=== PATIENT | female | born 1975 | race Caucasian/White ===

== ENCOUNTER 2022-09-23 12:45 | Outpatient (CLI) | payer MEDICARE ==
--- NOTE | 2022-09-23 16:33 | XRAY Report ---
PROCEDURE: Elbow 2 View RT INDICATIONS: RIGHT ELBOW INJURY. TECHNIQUE: 2 views of the elbow were acquired. COMPARISON: None. FINDINGS: Bones: No fractures or dislocations. No suspicious bony lesions. Soft tissues: No effusion. No suspicious soft tissue calcifications or masses. IMPRESSION: No acute fracture. No osseous lesion. If symptoms and/or clinical suspicion for pathology continue, f urther assessment with repeat plain films, or advanced imaging (e.g., CT, MRI, or bone scan) is recom mended for further assessment. Reviewed by: Concepcion Girard MD on 09/23/2022 4:32 PM PDT Approved by: Concepcion Girard MD on 09/23/2022 4:32 PM PDT Station ID: [id number]
== END 2022-09-23 13:00 | disposition home or self-care (01) ==
LOC: DI.N 12:45
PROVIDERS: ATTEND Specialist
DX: S59.801D Other specified injuries of right elbow, subsequent encounter (principal)

== ENCOUNTER 2022-12-14 08:00 | Outpatient (CLI) | payer MEDICARE | END 2022-12-14 23:59 | disposition home or self-care (01) | LOC: LAB.WC 08:00 | PROVIDERS: ATTEND Obstetrics & Gynecology | DX: Z32.02 Encounter for pregnancy test, result negative (principal) ==

== ENCOUNTER 2023-01-31 14:51 | Outpatient (CLI) | payer MEDICARE, OTHER ==
--- NOTE | 2023-01-31 20:54 | SLEEP CARE CONSULTATION ---
Information from patient questionnaire entered by Binh Gunter. I have reviewed and concur with the information entered by Binh Gunter. This document represents the service I personally performed and the decisions made by me, Ned Kennedy MD, [facility]. History of Present Illness Service Date and Time: 01/31/2023 1451 Reason for Visit: New patient Chief Complaint: reports: Insomnia, Unrefreshed sleep Date of Onset: LIFE LONG Usual bedtime: 10PM Time it takes to fall asleep: OVER AN HR Snores at night: Yes Observed to quit breathing while asleep: No Sleeps alone due to snoring: No Number of times waking at night: 4 Reasons for waking at night: reports: Other (UNKNOWN) Toss, Turn, or Twitch while sleeping: Yes Recalls having dreams: No Feels refreshed in the morning: No Morning headache: Yes Sleepy or fatigued during the day: No Ever fallen asleep while driving: No Takes day naps: No Dreams during day naps: No Prior sleep studies: No Additional HPI information: I have the pleasure of seeing Ms. Anthony today regarding the possibility of her having obstructive sleep apnea. As you know, she is a 47-year-old lady who complains of life-long insomnia. She has been treated will all kinds of sleep aid including zolpidem, Lunesta, trazodone, etc. Presently, she takes lorazepam. The patient tells me that she normally goes to bed around 10 pm but does not turn off the light until midnight. It takes her approximately 60 minutes to fall asleep. She has been told that she snores loudly and irregularly at night. She has never been observed to stop breathing in her sleep. Her sleeps in the same bed. He has obstructive sleep apnea- hypopnea but does not like to use his CPAP. She can recall waking up on the average of 4 times during the night. Most of the time she wakes up because of having to use the bathroom. She has awakened occasionally because of her own snoring, choking, and having to gasp for air. There is not a lot of tossing and turning in her sleep. She reports having somniloquy (sleep talking) and somnambulism (sleep walking). Generally, there is no recollection of dreams. In the morning she usually gets up out of the bed around 9 a.m. not feeling refreshed nor rested. She usually has a morning headache that goes away with drinking water. During the day she complains of feeling fatigued but not sleepy. Her score on [place] Sleepiness Scale is 1 out of 24. She never has fallen asleep while driving nor has had any accident due to sleepiness. She usually does not take naps during the day. She reports having impaired concent ration during the day. 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 Patient is and lives in . Alcohol use: No Caffeine use: Yes Caffeine amount and frequency: 4-5 DAILY Family History Family history of sleep disordered breathing: Yes Family Hx Sleep Apnea: Mother: Snoring, Father: Snoring, Sibling: Snoring Allergies and Home Medications Known drug allergies: Yes ( LISTED) Drug allergies reviewed: Yes Home medication list reviewed: Yes Review of Systems Cardiovascular: reports: high blood pressure Respiratory: denies: shortness of breath, wheeze, sputum production, chronic co ugh, other Gastrointestinal: reports: heartburn Urinary: denies: incontinence, frequency, urgency, impotence, other Neurological: reports: headaches Psychiatric: reports: Attention Deficit Hyperactivity, anxiety, depression, mood disorder, claustrophobia Ear/Nose/Throat: reports: tonsillectomy, wisdom teeth removed Endocrine: reports: sluggishness, increased appetite Musculoskeletal: reports: back pain, muscle pain or cramping Immunologic: denies: sneezing, rash, itching, allergies to food or environment, other Physical Exam Vital signs obtained and entered by: BINH Engel MA Blood Pressure: 126/78 (LEFT ARM) Cuff size: regular Heart Rate: 82 O2 Saturation: 97 Height: 5 ft 9 in Weight: 198 lb 3.2 oz Body Mass Index: 29.2 BMI Classification: Overweight Neck circumference: 14.5 Mood/affect: Normal HEENT: No craniofacial malformation Nostrils: patent to airflow Turbinates: normal Septum: midline Mouth and throat: narrow oropharynx Soft palate: long Hard palate: normal Uvula: normal Uvula visualization: 50% Mallampati Class II Tongue: normal in size Tonsils: absent bilaterally Chin and jaw: normal size and position Neck: normal w/o lymphadenopathy or thyromegaly Heart: regular rate and rhythm Lungs: clear bilaterally Extremities: no edema or clubbing Neurologic: intact Impression and Plan IMPRESSION: 1. Obstructive Sleep Apnea-Hypopnea Syndrome, as evident by history of snoring, frequent awakenings during the night, unrefreshed sleep, morning headache, and cognitive impairment. Narrow oropharynx and obesity are common predisposing factors for obstructive sleep apnea-hypopnea syndrome. Untreated obstructive sleep apnea can also cause hypertension. I recommend proceeding to polysomnography to confirm the diagnosis and to assess severity. If she has significant sleep disordered breathing, a manual CPAP titration study will also be performed to find the optimal treatment pressure. I informed the patient of what the sleep studies involve and after some discussion, she agreed to proceed. 2. Insomnia due to excessive time spent in bed and underlying psychiatric disorders. The patients sleep-wake pattern reflects that of untreated bipolar disorder. However, the patient also spends 11 hours in bed each nightfrom 10 pm to 9 am. She appears to be obsessed with sleep. I tried to diffuse if buy pointing out to her that life is already short, and she should not spend half of it in the bedroom. The lack of excessive daytime sleepiness ([place] Sleepiness Scale score is only 1) confirms that she has been getting adequate sleep all along. Therefore, her goal should be to not lie awake in bed, instead of sleeping more which is not possible. I advised her to not go to bed until 1 am if she continues to get out of bed at 9 am. Plan: 1. Schedule polysomnography and return in 1 to 2 weeks after the study to discuss the results. 2. Maintain a regular wake up time and spend no more than 8 hours in bed at night. Avoid naps. Follow up with Sleep Care in: 1-2 months Visit Type: In Office Time Spent with Patient (minutes): 15 Provider Statement: I spent 100% of the Face to Face Visit with the patient with greater than 50% spent counseling the patient and coordination of care.
[2023-01-31 20:55] VITALS: BP 126/78; O2SAT 97
== END 2023-01-31 14:52 | disposition home or self-care (01) ==
LOC: SC 14:51
PROVIDERS: ATTEND Internal Medicine Pulmonary Disease
DX: R53.83 Other fatigue (principal); G47.8 Other sleep disorders; R51.9 Headache, unspecified; R41.89 Other symptoms and signs involving cognitive functions and awareness; R06.83 Snoring; F32.A Depression, unspecified; E66.3 Overweight; Z68.29 Body mass index [BMI] 29.0-29.9, adult
CPT/HCPCS: 99202; G0463; 99212

== ENCOUNTER 2023-04-02 21:56 | Outpatient (CLI) | payer MEDICARE, OTHER | END 2023-04-02 21:57 | disposition critical access hospital (66) | LOC: EMS 21:56 | DX: R56.9 Unspecified convulsions (principal); Z73.3 Stress, not elsewhere classified; Z72.820 Sleep deprivation | CPT/HCPCS: A0425; A0429 ==

== ENCOUNTER 2023-04-02 22:15 | Emergency (ER) | payer MEDICARE, OTHER ==
--- NOTE | 2023-04-02 22:57 | ED Physician Documentation ---
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 History obtained with patient and spouse at bedside. Spouse states that the patient had complained of a headache and was laying on his lap. He states that all of a sudden she let out a guttural sound and sat straight up. Shortly afterwards she went limp and then began convulsing and frothing at the mouth. He states this lasted approximately 1 minute before it spontaneously subsided. Afterwards the patient was confused. Patient states that she does not remember anything until medics arrived and she was being loaded onto the ambulance. Patient states that she has been under a lot of anxiety lately and recently was at [facility] voluntarily for anxiety and suicidal ideations. She reports a history of "stress seizures" many years ago, but has not had one in multiple years. She has recently restarted taking buspirone. She used to be on this medication several years ago but stopped, she started taking it again approximately 3 weeks ago. She denies any drug or illicit substance use, but does use a marijuana vape pen. Spouse at bedside confirms patient is back to neurologic baseline. Review of Systems Constitutional: denies: Fever, Chills Cardiac: denies: Chest pain / pressure, Palpitations, Calf pain Respiratory: denies: Dyspnea, Cough, Wheezing Skin: denies: Rash, Lesions, Abrasion (s) Musculoskeletal: denies: Neck pain, Back pain, Extremity pain Neurologic: reports: Seizure. denies: Generalized weakness, Focal weakness, Numbness Psychiatric: reports: Anxiety PD PAST MEDICAL HISTORY - Past Medical History Past Medical History: Yes Cardiovascular: None Respiratory: None Neuro: Other Endocrine/Autoimmune: None GI: None SPIRAL RUNNER: None : None HEENT: None Psych: Depression, Anxiety, Bipolar disorder, Panic attacks, Post traumatic stress disorder Musculoskeletal: None Derm: None Other Past Medical History: prior stress induced seizure - Past Surgical History Past Surgical History: Yes HEENT: Tonsil/Adenoidectomy - Allergies Allergies/Adverse Reactions: Allergies Allergy/AdvReac Type Severity Reaction Status Date / Time codeine Allergy Nausea Verified 04/02/23 22:37 erythromycin base Allergy Rash Verified 04/02/23 22:37 - Social History Does the pt smoke?: No Smoking Status: Never smoker Does the pt drink ETOH?: Yes Does the pt have substance abuse?: No - Immunizations Immunizations are current?: Yes - POLST Patient has POLST: No PD ED PE NORMAL - Vitals Vital signs reviewed: Yes - General General: Alert and oriented X 3, No acute distress, Well developed/nourished, Other (appears older than stated age) - Neck Neck: Supple, no meningeal sign - Cardiac Cardiac: RRR, Strong equal pulses - Respiratory Respiratory: No respiratory distress, Clear bilaterally - Abdomen Abdomen: Soft, Non tender, Non distended - Back Back: No CVA TTP, No spinal TTP - Derm Derm: Normal color, Warm and dry, No rash - Extremities Extremities: No deformity, No tenderness to palpate, Normal ROM s pain - Neuro Neuro: Alert and oriented X 3, customer development manager 2-12 intact, No motor deficit, Normal speech - Psych Psych: Normal mood, Normal affect Results - Vitals Vitals: Vital Signs - 24 hr 04/02/23 04/02/23 04/03/23 22:32 23:09 01:05 Temperature 37.1 C 36.7 C Heart Rate 104 H 80 72 Respiratory 18 18 16 Rate Blood Pressure 155/94 H 130/89 H 141/76 H O2 Saturation 98 98 97 04/03/23 01:27 Temperature Heart Rate 72 Respiratory 17 Rate Blood Pressure 145/76 H O2 Saturation 97 Oxygen O2 Source Room air - EKG (time done) 225 EKG releavant findings:: EKG personally interpreted by author of this note. Relevant findings are: Rate: Rate (enter#) (78) Rhythm: NSR [place]: Normal Intervals: Normal [place] QRS: Normal Ischemia: Normal ST segments - Labs Labs: Laboratory Tests 04/02/23 04/02/23 04/02/23 22:49 22:54 22:54 WBC 9.0 RBC 3.94 L Hgb 12.2 Hct 36.0 L MCV 91.4 MCH 31.0 MCHC 33.9 RDW 12.5 Plt Count 277 MPV 10.8 Neut # (Auto) 6.2 Lymph # (Auto) 2.1 [place] # (Auto) 0.6 Eos # (Auto) 0.1 Baso # (Auto) 0.0 Absolute Nucleated RBC 0.00 Nucleated RBC % 0.0 PT 12.2 INR 1.1 Sodium Potassium Chloride Carbon Dioxide Anion Gap BUN Creatinine Estimated GFR (MDRD) Glucose Lactic Acid 2.4 H Calcium Phosphorus Magnesium Total Bilirubin AST ALT Alkaline Phosphatase Total Creatine Kinase Total Protein Albumin Globulin Albumin/Globulin Ratio Lipase Urine Color Urine Clarity Urine pH Ur Specific [place] Urine Protein Urine Glucose (UA) Urine Ketones Urine Occult Blood Urine Nitrite Urine Bilirubin Urine Urobilinogen Ur Leukocyte Esterase Urine RBC Urine WBC Ur Squamous Epith Cells Urine Bacteria Ur Microscopic Review Urine Culture Comments Salicylates Urine Opiates Screen Ur Buprenorphine Scrn Ur Oxycodone Screen Urine Methadone Screen Acetaminophen Ur Barbiturates Screen Ur Tricyclics Screen Ur Phencyclidine Scrn Ur Amphetamine Screen U Methamphetamines Scrn U Benzodiazepines Scrn Urine Cocaine Screen U Cannabinoids Screen Ur Drug Screen Comment Ethyl Alcohol 04/02/23 04/02/23 23:27 23:36 WBC RBC Hgb Hct MCV MCH MCHC RDW Plt Count MPV Neut # (Auto) Lymph # (Auto) [place] # (Auto) Eos # (Auto) Baso # (Auto) Absolute Nucleated RBC Nucleated RBC % PT INR Sodium 135 Potassium 4.3 Chloride 108 Carbon Dioxide 19 L Anion Gap 8.0 BUN 10 Creatinine 0.9 Estimated GFR (MDRD) 66 L Glucose 213 H Lactic Acid Calcium 8.6 Phosphorus 2.3 L Magnesium 1.9 Total Bilirubin 0.3 AST 23 ALT 11 Alkaline Phosphatase 54 Total Creatine Kinase 113 Total Protein 7.1 Albumin 4.0 Globulin 3.1 Albumin/Globulin Ratio 1.3 Lipase 36 Urine Color YELLOW Urine Clarity CLEAR Urine pH 5.5 Ur Specific [place] 1.020 Urine Protein TRACE Urine Glucose (UA) NEGATIVE Urine Ketones NEGATIVE Urine Occult Blood NEGATIVE Urine Nitrite NEGATIVE Urine Bilirubin NEGATIVE Urine Urobilinogen 0.2 (NORMAL) Ur Leukocyte Esterase TRACE H Urine RBC None Seen Urine WBC 4-5 Ur Squamous Epith Cells MANY Squamous H Urine Bacteria Rare Ur Microscopic Review INDICATED Urine Culture Comments NOT INDICATED Salicylates < 1.5 Urine Opiates Screen NEGATIVE Ur Buprenorphine Scrn NEGATIVE Ur Oxycodone Screen NEGATIVE Urine Methadone Screen NEGATIVE Acetaminophen 5.8 Ur Barbiturates Screen NEGATIVE Ur Tricyclics Screen NEGATIVE Ur Phencyclidine Scrn NEGATIVE Ur Amphetamine Screen NEGATIVE U Methamphetamines Scrn NEGATIVE U Benzodiazepines Scrn NEGATIVE Urine Cocaine Screen NEGATIVE U Cannabinoids Screen POSITIVE H Ur Drug Screen Comment CUTOFF CONC BELOW: Ethyl Alcohol < 10.0 PD Medical Decision Making - ED course Complexity details: reviewed old records, reviewed results, re-evaluated patient, considered differential, d/w patient, d/w family ED course: Nontoxic-appearing patient with suspected new onset seizure activity. Patient's spouse at bedside does seem to describe a postictal state, however patient did not bite her tongue or urinate on herself. Question if patient's resumption of buspirone could have led to decreased seizure threshold. Patient is neurologically back to baseline, other than feeling overall fatigued she has no complaints. Will order laboratory work and imaging. Laboratory work is reviewed, there is a mild elevation of lactic acid, this could be seen in the acute phase after a seizure. Electrolytes are within normal limits, CT brain shows no acute abnormalities. EKG is normal sinus rhythm without prolonged QTc or other abnormalities. There have been no further episodes of seizure-like activity, patient is resting comfortably in bed and continues to be at her baseline. All labs and imaging discussed with patient and spouse at bedside. I did recommend that the patient and her spouse speak with her primary care physician about either decreasing the buspirone dose or stopping it altogether. In addition I also recommended neurology follow-up for further evaluation and possible EEG. Patient and spouse expressed understanding of the plan and are in agreement at this time. Patient requested a medication for anxiety to help her sleep tonight, this was provided. All questions answered at time of discharge. Departure - Departure Disposition: 01 Home, Self Care Clinical Impression: Seizure Condition: Stable Instructions: ED Seizure New Onset Unk Cause Comments: You were seen today for seizure-like activity. Your laboratory work, CT scan, chest x-ray today were normal. I do see buspirone on your medication list, I recommend calling your doctor to see if you can either decrease this dose or come off of it entirely as buspirone can decrease the seizure threshold in some people. I also recommend following up with a neurologist. In patients with seizures it is recommended that you do not drive, swim unassisted, operate heavy machinery, or otherwise take on any job or activities where sudden loss of consciousness could be a danger to yourself or other people. Forms: PCP List Discharge Date/Time: 04/03/23 01:27
[2023-04-02 23:02] LABS: BASOPHILS % (AUTO) 0.4 %; EOSINOPHILS # (AUTO) 0.1 10^3/uL (0.0-0.7); EOSINOPHILS % (AUTO) 1.1 %; HGB - HEMOGLOBIN 12.2 g/dL (12.0-16.0); LYMPHOCYTES # (AUTO) 2.1 10^3/uL (1.5-3.5); LYMPHOCYTES % (AUTO) 22.9 %; MEAN CORPUSCULAR HGB CONC 33.9 g/dL (32.0-36.0); MEAN CORPUSCULAR VOLUME 91.4 fL (81.0-99.0); MEAN PLATELET VOLUME 10.8 fL (7.9-10.8); MONOCYTES # (AUTO) 0.6 10^3/uL (0.0-1.0); MONOCYTES % (AUTO) 6.4 %; NEUTROPHILS # (AUTO) 6.2 10^3/uL (1.5-6.6); NEUTROPHILS % (AUTO) 68.8 %; PLT - PLATELET COUNT 277 10^3/uL (130-450); RED BLOOD COUNT 3.94 10^6/uL (4.20-5.40); RED CELL DISTRIBUTION WIDTH 12.5 % (12.0-15.0)
[2023-04-02 23:09] LABS: INR 1.1 (0.8-1.2); PT - PROTHROMBIN TIME 12.2 secs (9.9-12.6)
[2023-04-02 23:43] LABS: BILIRUBIN,URINE NEGATIVE (NEGATIVE); GLUCOSE, URINE (UA) NEGATIVE (NEGATIVE); KETONES,URINE (UA) NEGATIVE (NEGATIVE); LEUKOCYTE ESTERASE, URINE TRACE (NEGATIVE); NITRITE,URINE NEGATIVE (NEGATIVE); OCCULT BLOOD,URINE NEGATIVE (NEGATIVE); PH,URINE 5.5 PH (5.0-7.5); PROTEIN,URINE TRACE mg/dL (NEGATIVE); UROBILINOGEN,URINE 0.2 (NORMAL) E.U./dL (NORMAL)
[2023-04-02 23:49] LABS: CLARITY,URINE CLEAR (CLEAR)
--- NOTE | 2023-04-02 23:58 | CT Report ---
PROCEDURE: HEAD WO INDICATIONS: new onset seizure TECHNIQUE: Noncontrast 4.5 mm thick angled axial sections acquired from the foramen magnum to the vertex. For r adiation dose reduction, the following was used: automated exposure control, adjustment of mA and/or kV according to patient size. COMPARISON: None. FINDINGS: Image quality: Excellent. CSF spaces: Basal cisterns are patent. No extra-axial fluid collections. Ventricles are normal in size and shape. Brain: No midline shift. No intracranial masses or hemorrhage. [place]-white matter interface is norm al. Skull and face: Calvarium and visualized facial bones are intact, without suspicious lesions. Sinuses: Visualized sinuses and mastoids are clear. IMPRESSION: No acute intracranial pathology. Reviewed by: Ned Luo MD on 04/02/2023 11:57 PM [facility] Approved by: Ned Luo MD on 04/02/2023 11:57 PM [facility] Station ID: [id number]
--- NOTE | 2023-04-03 00:06 | XRAY Report ---
PROCEDURE: Chest 1 View X-Ray INDICATIONS: new seizure TECHNIQUE: One view of the chest was acquired. COMPARISON: None. FINDINGS: Surgical changes and devices: None. Lungs and pleura: No pleural effusions or pneumothorax. Lungs are clear. Mediastinum: Mediastinal contours appear normal. Heart size is normal. Bones and chest wall: No suspicious bony lesions. Overlying soft tissues appear unremarkable. IMPRESSION: No acute cardiopulmonary process. Reviewed by: Ned Luo MD on 04/03/2023 12:04 AM [facility] Approved by: Ned Luo MD on 04/03/2023 12:04 AM [facility] Station ID: [id number]
[2023-04-03 00:12] LABS: BACTERIA,URINE Rare /HPF (None Seen); RBC,URINE None Seen /HPF (0-5); SQUAMOUS EPITHELIAL CELL,UR MANY Squamous (<= Few)
[2023-04-03 00:13] LABS: AMPHETAMINE SCREEN,URINE NEGATIVE (NEGATIVE); BARBITURATE SCREEN,UR NEGATIVE (NEGATIVE); BENZODIAZEPINES SCREEN, URINE NEGATIVE (NEGATIVE); BUPRENORPHINE SCREEN, URINE NEGATIVE (NEGATIVE); COCAINE SCREEN URINE NEGATIVE (NEGATIVE); METHADONE SCREEN, URINE NEGATIVE (NEGATIVE); METHAMPHETAMINES SCREEN, URINE NEGATIVE (NEGATIVE); OPIATE SCREEN, URINE NEGATIVE (NEGATIVE); OXYCODONE SCREEN, URINE NEGATIVE (NEGATIVE); THC CANNABINOID SCREEN, URINE POSITIVE (NEGATIVE); TRICYCLIC ANTIDEPRESSANT,URINE NEGATIVE (NEGATIVE)
[2023-04-03 00:33] LABS: ACETAMINOPHEN 5.8 ug/mL; CK- CREATINE KINASE 113 IU/L (30-223); ETOH - ETHANOL < 10.0 mg/dL; LIPASE 36 U/L (11-82); MAGNESIUM 1.9 mg/dL (1.7-2.3); PHOSPHORUS 2.3 mg/dL (2.5-5.0)
[2023-04-03 00:34] LABS: ALBUMIN/GLOBULIN RATIO 1.3 (1.0-2.2); ALKALINE PHOSPHATASE 54 IU/L (42-121); ALT ALANINE AMINOTRANSFERASE 11 IU/L (10-60); AST ASPARTATE AMINOTRANSFERASE 23 IU/L (10-42); BILIRUBIN,TOTAL 0.3 mg/dL (0.2-1.0); BUN - BLOOD UREA NITROGEN 10 mg/dL (6-20); CALCIUM 8.6 mg/dL (8.5-10.3); CARBON DIOXIDE - CO2 19 mmol/L (21-32); CHLORIDE 108 mmol/L (101-111); CREATININE 0.9 mg/dL (0.6-1.3); GFR - MDRD 66 (>89); GLUCOSE 213 mg/dL (74-104); POTASSIUM 4.3 mmol/L (3.5-4.5); SALICYLATE < 1.5 mg/dL; SODIUM 135 mmol/L (135-145); TOTAL PROTEIN 7.1 g/dL (6.4-8.9)
[2023-04-03 01:14] VITALS: O2SAT 97
[2023-04-03] MEDS ORDERED: LORazepam 1 MG TABLET PO STA (01:15)
[2023-04-03 01:33] VITALS: BP 145/76
== END 2023-04-03 01:27 | disposition home or self-care (01) ==
LOC: EDUNIT# → ED 22:15
DX: R56.9 Unspecified convulsions (principal); F41.9 Anxiety disorder, unspecified; Z79.899 Other long term (current) drug therapy
CPT/HCPCS: 36415; 70450; 71045; 80053; 80306; 80307; 81001; 82550; 83605; 83690; 83735; 84100; 85025; 85610; 93005; 99284; G0480; J8499; 80320; 80329; 81003; 87086

== ENCOUNTER 2023-04-08 23:40 | Emergency (ER) | payer MEDICARE, OTHER ==
[2023-04-09 00:23] LABS: BASOPHILS % (AUTO) 0.5 %; EOSINOPHILS # (AUTO) 0.1 10^3/uL (0.0-0.7); EOSINOPHILS % (AUTO) 1.2 %; LYMPHOCYTES # (AUTO) 2.1 10^3/uL (1.5-3.5); LYMPHOCYTES % (AUTO) 25.9 %; MEAN CORPUSCULAR HGB CONC 34.2 g/dL (32.0-36.0); MEAN CORPUSCULAR VOLUME 90.5 fL (81.0-99.0); MEAN PLATELET VOLUME 9.9 fL (7.9-10.8); MONOCYTES # (AUTO) 0.5 10^3/uL (0.0-1.0); MONOCYTES % (AUTO) 5.9 %; NEUTROPHILS # (AUTO) 5.4 10^3/uL (1.5-6.6); PLT - PLATELET COUNT 390 10^3/uL (130-450); RED CELL DISTRIBUTION WIDTH 12.6 % (12.0-15.0); WHITE BLOOD COUNT 8.1 x10^3/uL (4.8-10.8)
[2023-04-09 00:41] LABS: TROPONIN I HIGH SENSITIVITY 5.2 ng/L (2.3-14.8)
[2023-04-09 01:26] LABS: ALBUMIN 4.4 g/dL (3.2-5.5)
[2023-04-09 01:27] LABS: ALBUMIN/GLOBULIN RATIO 1.3 (1.0-2.2); BILIRUBIN,TOTAL 0.5 mg/dL (0.2-1.0); CALCIUM 9.6 mg/dL (8.5-10.3); POTASSIUM 3.4 mmol/L (3.5-4.5); TOTAL PROTEIN 7.8 g/dL (6.4-8.9)
--- NOTE | 2023-04-09 01:36 | ED Physician Documentation ---
PD HPI ALTERED MENTAL STATUS - Stated complaint Stated Complaint: CONFUSION - Chief complaint Chief Complaint: Neuro - History obtained from History obtained from: Patient, Family - Additional information Additional information: HPI from patient and spouse (in ED at bedside). Patient says she is here due to problems associated with perimenopause. She also says she has been having confusion. She then begins to tell me about when she was born but then interrupts; he says patient had possible seizure one week ago for which she was evaluated in this ED. He says she has been acting odd ever since then. He says she has fluctuating level of consciousness, at times sleeping more than usual, sometimes confused. He says at times she has been impulsive and becomes angry with him and, at times, has been violent with him as well. He took her to a walk-in clinic in [place] yesterday for evaluation of FARRELL and she was given topamax which did not seem to improve headache nor change her odd behaviors. I note on JAVI form ED visit to [facility] 03/24/23. says she was admitted for mental health issues but that she signed out the following day. Review of Systems Cardiac: reports: Reviewed and negative Respiratory: reports: Reviewed and negative GI: reports: Reviewed and negative PD PAST MEDICAL HISTORY - Past Medical History Past Medical History: Yes Cardiovascular: None Respiratory: None Neuro: Seizure disorder, Other Endocrine/Autoimmune: None GI: None EXPRESS MANAGER: None : None HEENT: None Psych: Depression, Anxiety, Bipolar disorder, Panic attacks, Post traumatic stress disorder Musculoskeletal: None Derm: None - Past Surgical History Past Surgical History: Yes HEENT: Tonsil/Adenoidectomy - Present Medications Home Medications: Ambulatory Orders Medication Instructions Recorded Confirmed Gabapentin [Neurontin] 300 mg PO HS 04/09/23 04/09/23 LORazepam [Ativan] 1 mg PO ONCE 04/09/23 04/09/23 Lisinopril/Hydrochlorothiazide 1 each PO DAILY 04/09/23 04/09/23 [Zestoretic 20-12.5 mg Tablet] Topiramate 50 mg PO DAILY 04/09/23 04/09/23 buPROPion [Wellbutrin Xl] 150 mg PO TID 04/09/23 04/09/23 busPIRone [Buspar] 5 mg PO UD 04/09/23 04/09/23 cloNIDine [Catapres] 0.1 mg PO DAILY 04/09/23 04/09/23 clonazePAM [KlonoPIN] 0.5 mg PO PRN PRN 04/09/23 04/09/23 - Allergies Allergies/Adverse Reactions: Allergies Allergy/AdvReac Type Severity Reaction Status Date / Time codeine Allergy Nausea Verified 04/08/23 23:44 doxycycline Allergy Unknown Verified 04/09/23 11:18 erythromycin base Allergy Rash Verified 04/08/23 23:44 - Social History Does the pt smoke?: No Smoking Status: Never smoker Does the pt drink ETOH?: Yes Does the pt have substance abuse?: No - Immunizations Immunizations are current?: Yes - POLST Patient has POLST: No PD ED PE NORMAL - Vitals Vital signs reviewed: Yes - General General: Alert and oriented X 3, No acute distress, Well developed/nourished - HEENT HEENT: PERRL, EOMI - Neck Neck: Supple, no meningeal sign - Cardiac Cardiac: RRR, No murmur - Respiratory Respiratory: No respiratory distress, Clear bilaterally - Abdomen Abdomen: Soft, Non tender - Neuro Eye Opening: Spontaneous Motor: Obeys Commands Verbal: Oriented GCS Score: 15 PD ED PE EXPANDED - Psych Psych: Other (tangential) Results - Vitals Vitals: Vital Signs - 24 hr 04/09/23 22:30 Heart Rate 97 Respiratory 16 Rate Blood Pressure 127/76 O2 Saturation 99 Oxygen O2 Source Room air - Labs Labs: Laboratory Tests 04/09/23 04/09/23 04/09/23 00:00 00:00 00:00 WBC 8.1 RBC 4.20 Hgb 13.0 Hct 38.0 MCV 90.5 MCH 31.0 MCHC 34.2 RDW 12.6 Plt Count 390 MPV 9.9 Neut # (Auto) 5.4 Lymph # (Auto) 2.1 [place] # (Auto) 0.5 Eos # (Auto) 0.1 Baso # (Auto) 0.0 Absolute Nucleated RBC 0.00 Nucleated RBC % 0.0 Sodium 138 Potassium 3.4 L Chloride 107 Carbon Dioxide 18 L Anion Gap 13.0 BUN 14 Creatinine 0.8 Estimated GFR (MDRD) 76 L Glucose 182 H Calcium 9.6 Total Bilirubin 0.5 AST 28 ALT 14 Alkaline Phosphatase 60 Troponin I High Sens 5.2 Total Protein 7.8 Albumin 4.4 Globulin 3.4 Albumin/Globulin Ratio 1.3 Lipase 26 TSH Urine Color Urine Clarity Urine pH Ur Specific [place] Urine Protein Urine Glucose (UA) Urine Ketones Urine Occult Blood Urine Nitrite Urine Bilirubin Urine Urobilinogen Ur Leukocyte Esterase Urine RBC Urine WBC Ur Squamous Epith Cells Urine Bacteria Ur Microscopic Review Urine Culture Comments Urine HCG, Qual Salicylates < 1.5 Urine Opiates Screen Ur Buprenorphine Scrn Ur Oxycodone Screen Urine Methadone Screen Acetaminophen 0.2 Ur Barbiturates Screen Ur Tricyclics Screen Ur Phencyclidine Scrn Ur Amphetamine Screen U Methamphetamines Scrn U Benzodiazepines Scrn Urine Cocaine Screen U Cannabinoids Screen Ur Drug Screen Comment Ethyl Alcohol < 10.0 SARS-CoV-2 (PCR) 04/09/23 04/09/23 04/09/23 02:24 02:44 12:23 WBC RBC Hgb Hct MCV MCH MCHC RDW Plt Count MPV Neut # (Auto) Lymph # (Auto) [place] # (Auto) Eos # (Auto) Baso # (Auto) Absolute Nucleated RBC Nucleated RBC % Sodium Potassium Chloride Carbon Dioxide Anion Gap BUN Creatinine Estimated GFR (MDRD) Glucose Calcium Total Bilirubin AST ALT Alkaline Phosphatase Troponin I High Sens Total Protein Albumin Globulin Albumin/Globulin Ratio Lipase TSH 1.98 Urine Color YELLOW Urine Clarity CLEAR Urine pH 6.0 Ur Specific [place] 1.010 Urine Protein NEGATIVE Urine Glucose (UA) NEGATIVE Urine Ketones NEGATIVE Urine Occult Blood LARGE H Urine Nitrite NEGATIVE Urine Bilirubin NEGATIVE Urine Urobilinogen 0.2 (NORMAL) Ur Leukocyte Esterase TRACE H Urine RBC 0-5 Urine WBC 0-3 Ur Squamous Epith Cells MOD Squamous H Urine Bacteria Rare Ur Microscopic Review INDICATED Urine Culture Comments NOT INDICATED Urine HCG, Qual NEGATIVE Salicylates Urine Opiates Screen NEGATIVE Ur Buprenorphine Scrn NEGATIVE Ur Oxycodone Screen NEGATIVE Urine Methadone Screen NEGATIVE Acetaminophen Ur Barbiturates Screen NEGATIVE Ur Tricyclics Screen NEGATIVE Ur Phencyclidine Scrn NEGATIVE Ur Amphetamine Screen NEGATIVE U Methamphetamines Scrn NEGATIVE U Benzodiazepines Scrn NEGATIVE Urine Cocaine Screen NEGATIVE U Cannabinoids Screen POSITIVE H Ur Drug Screen Comment CUTOFF CONC BELOW: Ethyl Alcohol SARS-CoV-2 (PCR) NOT DETECTED PD Medical Decision Making - ED course Complexity details: reviewed results, re-evaluated patient, considered differential, d/w patient ED course: No concerning nor diagnostic findings on CBC, ER abdominal panel. UDS positive for cannabinoids. undetectable serum ethanol. Given CTH performed one week ago in this ED without abnormality, repeat imaging is not undertaken at this time. Patient is given 5mg TL zyprexa. Telepsychiatry consulted but unfortunately they tell us to expect significant delay in evaluation due to difficulty finding a provider. Social work consulted. Care of patient turned over to oncoming ED physician at end of my shift (Dr. Mariano) Departure - Departure Disposition: [facility] Psych Hosp/Unit DC/Xfer Clinical Impression: Agitation Condition: Stable Forms: PCP List Discharge Date/Time: 04/09/23 23:15
[2023-04-09 02:40] LABS: BILIRUBIN,URINE NEGATIVE (NEGATIVE); GLUCOSE, URINE (UA) NEGATIVE (NEGATIVE); KETONES,URINE (UA) NEGATIVE (NEGATIVE); LEUKOCYTE ESTERASE, URINE TRACE (NEGATIVE); NITRITE,URINE NEGATIVE (NEGATIVE); OCCULT BLOOD,URINE LARGE (NEGATIVE); PROTEIN,URINE NEGATIVE (NEGATIVE); UROBILINOGEN,URINE 0.2 (NORMAL) E.U./dL (NORMAL)
[2023-04-09 03:03] LABS: CLARITY,URINE CLEAR (CLEAR); HCG UR QUAL NEGATIVE
[2023-04-09 03:05] LABS: AMPHETAMINE SCREEN,URINE NEGATIVE (NEGATIVE); BACTERIA,URINE Rare /HPF (None Seen); BARBITURATE SCREEN,UR NEGATIVE (NEGATIVE); BENZODIAZEPINES SCREEN, URINE NEGATIVE (NEGATIVE); BUPRENORPHINE SCREEN, URINE NEGATIVE (NEGATIVE); COCAINE SCREEN URINE NEGATIVE (NEGATIVE); METHADONE SCREEN, URINE NEGATIVE (NEGATIVE); METHAMPHETAMINES SCREEN, URINE NEGATIVE (NEGATIVE); OPIATE SCREEN, URINE NEGATIVE (NEGATIVE); OXYCODONE SCREEN, URINE NEGATIVE (NEGATIVE); RBC,URINE 0-5 /HPF (0-5); SQUAMOUS EPITHELIAL CELL,UR MOD Squamous (<= Few); THC CANNABINOID SCREEN, URINE POSITIVE (NEGATIVE); TRICYCLIC ANTIDEPRESSANT,URINE NEGATIVE (NEGATIVE); WBC,URINE 0-3 /HPF (0-5)
[2023-04-09 04:16] LABS: CREATININE 0.8 mg/dL (0.6-1.3)
[2023-04-09 04:25] LABS: ACETAMINOPHEN 0.2 ug/mL; ETOH - ETHANOL < 10.0 mg/dL
[2023-04-09 04:38] LABS: SALICYLATE < 1.5 mg/dL
[2023-04-09] MEDS ORDERED: OLANZapine ODT 5 MG TABLET TL STA ×2 (05:33→10:16)
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
[2023-04-09] MEDS ORDERED: LORazepam 1 MG TABLET PO STA ×2 (10:17→13:12)
--- NOTE | 2023-04-09 10:18 | ED Physician Documentation ---
ED Addendum - Addendum Addendum: Patient signed out to me at shift change pending telepsychiatry evaluation. During her telepsychiatry evaluation patient became very upset with the telepsychiatry provider and demanding to leave AGAINST MEDICAL ADVICE. I was able to asked the patient to come back into her room to have a conversation. states that she became upset when he was invited back into the room to participate in the conversation was relaying more information to the telepsychiatrist and patient felt that we are going to detain her and did not like that has been was revealing any information. Patient states that her daughter who she has not seen in a year is supposed to fly in tomorrow for [facility] [employer]. Patient reportedly lost custody of her daughter for 10 years. She does not want to be hospitalized when her daughter is here. When I asked the patient why she is here at the hospital she cannot give me a clear answer. She initially stated that she was here because she has migraines and was recently started on Topamax. I explained that this is not a reason to come to the emergency department and asked for further information. She is alert and oriented to person place and time but is not able to give me insight as to why her may have brought her into the emergency department. During our conversation she became increasingly agitated with questions and wanting to leave AGAINST MEDICAL ADVICE. I explained that I had concerns regarding her safety as did the telepsychiatry professional that I spoke with and she is not able to give me a clear understanding as to why she was brought to the emergency department or answer questions very well. She then Stood at her doorway wanting to leave and when I told her if she left that me may need to call law enforcement if there were concerns regarding her safety or if we felt she was gravely disabled. She then started screaming and yelling down the hallway and jumping up and down. Security was called and she was able to be talked back into her room. She eventually agreed to taking more Zyprexa and Ativan in order to help her calm down. I explained that more cooperative she could be then that that would be in her better interest. Social work was also notified regarding this event. During this outburst telepsychiatry was speaking to the to obtain more information. 04/09/23 10:17 Patient will be given oral Zyprexa and Ativan for her agitation and anxiety. I am not using this as a chemical restraint but in order to help patient manage her current feelings. 04/09/23 17:26 [facility] telepsychiatry service continues to work on placement of the patient. She is currently voluntary but some facilities have expressed concerns given for tendency to leave AMA. If facilities are declining her on a voluntary basis may need to request DCR to evaluate the patient. 04/09/23 17:54 Pt signed out at shift change.
[2023-04-09] MEDS ORDERED: risperiDONE 1 MG TABLET PO SCH (21:00)
--- NOTE | 2023-04-09 21:06 | ED Physician Documentation ---
ED Addendum - Addendum Addendum: 04/09/23 21:06 Patient accepted to [facility] for psychiatric treatment. Patient has remained calm and cooperative throughout the afternoon.
[2023-04-10 00:04] VITALS: BP 127/76; O2SAT 99
== END 2023-04-09 23:15 ==
LOC: ED 23:40
DX: F31.9 Bipolar disorder, unspecified (principal); R45.1 Restlessness and agitation; F41.9 Anxiety disorder, unspecified
CPT/HCPCS: 36415; 80053; 80306; 80307; 81001; 81025; 83690; 84443; 84484; 85025; 87635; 93005; 99283; 99285; A9270; G0427; G0480; J8499; Q3014; 80320; 80329; 81003; 87086